=== PATIENT | male | born 1980 | race Two or more races ===

== ENCOUNTER 2023-03-23 07:05 | Emergency (ER) | payer MEDICAID ==
[~2023-03-23] VITALS: Ht 167.6 cm; Wt 104.3 kg
--- NOTE | 2023-03-23 07:13 | NUR ---
BIB son, from home, c/o swollen face and sore throat, start 45min ago. Patient is AAOx4, states he has hx of right eye surgery and does not see well from it. Left eye is swollen. Arms and fingers are also edematous. Placed in bed, vitals checked.
[2023-03-23] MEDS ORDERED: methylPREDNISolone SOD SUCC 125 MG/2ML VIAL IV ONE (07:30)
[2023-03-23] MEDS ORDERED: EPINEPHRINE (1:1000) MDV 30 MG/30ML VIAL SUBCUT ONE (07:30)
[2023-03-23] MEDS ORDERED: FAMOTIDINE (20 MG) 20 MG TABLET PO ONE (07:30)
--- NOTE | 2023-03-23 07:31 | NUR ---
IV ESTABLISHED L AC 18G. LABS DRAWN AND COLLECTED AT BEDSIDE
[2023-03-23] MEDS ORDERED: EPINEPHRINE (1:1000) 1 MG/ML AMPUL ONE (07:37)
[2023-03-23] MEDS ORDERED: FAMOTIDINE/PF INJ 20 MG/2 ML VIAL IV ONE (07:37)
[2023-03-23] MEDS ORDERED: methylPREDNISolone SOD SUCC 125 MG/2ML VIAL ONE (07:37)
[2023-03-23] MEDS ORDERED: FAMOTIDINE (20 MG) 20 MG TABLET ONE ×2 (07:48→07:49)
--- NOTE | 2023-03-23 08:03 | NUR ---
X RAY AT BEDSIDE
[2023-03-23 08:11] LABS: BASOPHILS # (AUTO) 0.3 K/uL (0.0-0.2); BASOPHILS % (AUTO) 4.6 % (0.0-2.0); EOSINOPHILS % (AUTO) 2.9 % (0.0-6.0); HEMATOCRIT 49 % (39-51); HEMOGLOBIN 15.9 g/dL (13.5-17.5); LYMPHOCYTES # (AUTO) 1.2 K/uL (0.8-4.8); LYMPHOCYTES % (AUTO) 18.7 % (20.0-44.0); MEAN CORPUSCULAR HGB CONC 33 g/dl (31.0-36.0); MEAN CORPUSCULAR VOLUME 80 fL (80-96); MONOCYTES # (AUTO) 0.3 K/uL (0.1-1.30); NEUTROPHILS # (AUTO) 4.3 K/uL (1.8-8.9); NEUTROPHILS % (AUTO) 68.8 % (43.0-81.0); PLATELET COUNT (AUTO) 228 K/uL (150-450); WHITE BLOOD COUNT (AUTO) 6.3 K/uL (4.3-11.0)
--- NOTE | 2023-03-23 08:12 | NUR ---
Patient went to bathroom.
[2023-03-23 08:30] LABS: CALCIUM, SERUM 9.2 mg/dL (8.5-10.1); CREATININE 0.8 mg/dL (0.6-1.3); POTASSIUM 3.8 mmol/L (3.5-5.1)
[2023-03-23 08:33] LABS: ALBUMIN 3.6 g/dL (3.4-5.0); BILIRUBIN,DIRECT 0.1 mg/dL (0.0-0.2); BILIRUBIN,TOTAL 0.5 mg/dL (0.2-1.0); TOTAL PROTEIN, SERUM 7.3 g/dL (6.4-8.2)
--- NOTE | 2023-03-23 08:57 | NUR ---
PATIENT FEELS BETTER,NO SOB.PATIENT WENT TO WASHROOM.
[2023-03-23] MEDS ORDERED: METH4TAB3 PO (10:23)
[2023-03-23] MEDS ORDERED: EPIN0.3P3 IM (10:23)
--- NOTE | 2023-03-23 10:42 | NUR ---
Patient discharged to home in stable condition. Written and verbal after care instructions given. Patient verbalizes understanding of instruction.
--- NOTE | 2023-03-23 10:42 | NUR ---
IV removed. Catheter intact and site benign. Pressure and 4x4 applied to site. No bleeding noted.
[2023-03-23 10:43] VITALS: BP 130/72; TEMP 97.5
== END 2023-03-23 10:43 | disposition home or self-care (01) ==
LOC: ER 07:08
DX: R60.1 Generalized edema (principal); T78.49XA Other allergy, initial encounter; Z98.890 Other specified postprocedural states; Z79.899 Other long term (current) drug therapy; X58.XXXA Exposure to other specified factors, initial encounter
CPT/HCPCS: 99284; 96374; 71045; 85025; 80048; 80076; 36415; 96372; J0171; J3490; J2930